=== PATIENT | female | born 1975 | race Caucasian/White ===

== ENCOUNTER 2019-10-05 06:56 | Day surgery (SDC) | payer MEDICAID ==
[2019-10-02 10:06] LABS: BASOPHILS # (AUTO) 0.1 X10'3 (0-0.2); BASOPHILS % (AUTO) 1.3 % (0-1); EOSINOPHILS # (AUTO) 0.4 X10'3 (0-0.9); EOSINOPHILS % (AUTO) 4.3 % (0-6); LYMPHOCYTES # (AUTO) 2.2 X10'3 (1.1-4.8); LYMPHOCYTES % (AUTO) 27.2 % (21-51); MEAN CORPUSCULAR HEMOGLOBIN 27.8 PG (27.0-31.0); MEAN CORPUSCULAR HGB CONC 33.4 g/dL (33.0-36.5); MEAN CORPUSCULAR VOLUME 83.3 FL (78-98); MEAN PLATELET VOLUME 8.4 FL (7.4-10.4); MONOCYTES # (AUTO) 0.4 X10'3 (0-0.9); MONOCYTES % (AUTO) 5.3 % (2-12); NEUTROPHILS # (AUTO) 5.1 X10'3 (1.8-7.7); NEUTROPHILS % (AUTO) 61.9 % (42-75); PRE OP HEMATOCRIT 44.2 % (35.0-45.0); PRE OP HEMOGLOBIN 14.8 g/dL (12.0-16.0); PRE OP PLATELET COUNT 331 X10'3 (140-440); RED BLOOD COUNT 5.31 X10'6 (4.20-5.60); RED CELL DISTRIBUTION WIDTH 14.5 % (11.5-14.5)
[2019-10-02 10:16] LABS: ALBUMIN 3.8 G/DL (3.4-5.0); ALBUMIN/GLOBULIN RATIO 0.9 (1.1-1.5); ALKALINE PHOSPHATASE 94 IU/L (46-116); BLOOD UREA NITROGEN 9 MG/DL (7-18); BUN/CREATININE RATIO 10.2 (6.6-38.0); CALCIUM 9.6 MG/DL (8.5-10.1); CHLORIDE 102 MMOL/L (99-107); CREATININE 0.88 MG/DL (0.40-0.90); PRE OP ALT 57 U/L (30-65); PRE OP ANION GAP 9 (8-16); PRE OP AST 43 U/L (10-37); PRE OP BILIRUB, TOTAL 0.4 MG/DL (0.0-1.0); PRE OP POTASSIUM 4.5 MMOL/L (3.4-5.1); PRE OP SODIUM 137 MMOL/L (135-145); TOTAL CARBON DIOXIDE 26.3 MMOL/L (24-32); TOTAL PROTEIN 7.9 G/DL (6.4-8.2); eGFR 70 ML/MIN
[2019-10-02 10:17] LABS: PRE OP GLUCOSE 289 MG/DL (70-104)
[2019-10-02 10:50] LABS: HCG SERUM QL NEGATIVE
[~2019-10-05] VITALS: Ht 182.9 cm; Wt 134.1 kg
[~2019-10-05 06:56] MED LIST: ALBU8.5H8 INH; ATOR40TA PO; BUPIVAcaine/PF 2.5mg/ml (0.25%) 10ml vial ONE; BUSP7.5T4 PO; CHOL10006 PO; DIPH25CA83 PO; GABA-532 PO; INSU100I31 SUBCUT; METF-437 PO; MULT-1085 PO; ceFAZolin 1GM/D5W- ADD-VANTAGE 50 ML IV ONE; cefazolin/dext.iso 2gm/50ml 50 ML IV ONE; famotidine 20mg tablet PO ONE; ringers solution, lacted 1,000 ML IV SCH
[2019-10-05] MEDS ORDERED: insulin regular, human U-100 3ml vial - multi-dose SQ ONE (08:40)
[2019-10-05] MEDS ORDERED: LIDOcaine 0.5% (5mg/ml) 50ml vial ONE (08:58)
[2019-10-05] MEDS ORDERED: fentaNYL/PF 50MCG/1 ML 2ML syringe ONE (10:09)
[2019-10-05] MEDS ORDERED: ringers solution, lacted 1,000 ML IV SCH (10:31)
[2019-10-05] MEDS ORDERED: morphine 2 MG/ML inj. syringe IV PRN (10:35)
[2019-10-05] MEDS ORDERED: meperidine/PF 25mg/ml syringe IV PRN ×3 (10:35)
[2019-10-05] MEDS ORDERED: morphine 4 MG/ML inj SYRINge IV PRN (10:35)
[2019-10-05] MEDS ORDERED: ondansetron/PF 4mg/2ml inj IV PRN (10:35)
[2019-10-05] MEDS ORDERED: proCHLORperazine 10 MG/2 ml inj IV PRN (10:35)
[2019-10-05] MEDS ORDERED: propofol inj 20 ML IV ONE (10:38)
[2019-10-05] MEDS ORDERED: midazolam 2 mg/2 ml injection ONE (10:38)
[2019-10-05 10:45] VITALS: BP 101/44
--- NOTE | 2019-10-05 10:45 | NUR ---
Received from OR via [facility] , accompanied by Anesthesiologist AYANNA and report given by Anesthesiolgist. PATIENT WITH 22G PIV IN LEFT UE RUNNING LR AT 100.DENIES PAIN TO RIGHT WRIST AT THIS TIME. DRESSING IS CDI. LEOS. + SENSATION. ICE DONNED IN RR. VSS. 10L MASK ON WITH 100% SATURATIONS AT THIS TIME. Addendum: 10/05/19 at 1053 by Don Varela RN, RN Amended: Links added.
[2019-10-05 10:55] VITALS: BP 150/91
[2019-10-05 11:05] VITALS: BP 138/83
[2019-10-05 11:15] VITALS: BP 128/81
[2019-10-05 11:19] VITALS: BP 125/79
[2019-10-05 11:20] VITALS: BP 125/79
== END 2019-10-05 11:25 | disposition home or self-care (01) ==
LOC: PAS 06:56
PROVIDERS: ATTEND Orthopaedic Surgery Hand Surgery
DX: G56.01 Carpal tunnel syndrome, right upper limb (principal); J45.909 Unspecified asthma, uncomplicated; E11.9 Type 2 diabetes mellitus without complications; G43.909 Migraine, unspecified, not intractable, without status migrainosus; F41.9 Anxiety disorder, unspecified; E66.9 Obesity, unspecified; Z68.41 Body mass index [BMI] 40.0-44.9, adult; Z72.89 Other problems related to lifestyle; Z88.2 Allergy status to sulfonamides; Z98.890 Other specified postprocedural states; M19.90 Unspecified osteoarthritis, unspecified site; Z87.440 Personal history of urinary (tract) infections; Z79.84 Long term (current) use of oral hypoglycemic drugs; Z79.899 Other long term (current) drug therapy
CPT/HCPCS: 29848; 36415; 80053; 82948; 84703; 85025; 93005; J0690; J2001; J2250; J2704; J3010; J3490; A4215; A7000; J1815; J7120

== ENCOUNTER 2020-01-04 07:15 | Day surgery (SDC) | payer MEDICAID ==
[2019-12-31 15:13] LABS: BASOPHILS % (AUTO) 0.1 % (0-1); EOSINOPHILS # (AUTO) 0.4 X10'3 (0-0.9); EOSINOPHILS % (AUTO) 3.8 % (0-6); LYMPHOCYTES # (AUTO) 2.9 X10'3 (1.1-4.8); LYMPHOCYTES % (AUTO) 26.7 % (21-51); MEAN CORPUSCULAR HEMOGLOBIN 27.9 PG (27.0-31.0); MEAN CORPUSCULAR VOLUME 84.5 FL (78-98); MONOCYTES # (AUTO) 0.6 X10'3 (0-0.9); MONOCYTES % (AUTO) 5.5 % (2-12); NEUTROPHILS # (AUTO) 6.9 X10'3 (1.8-7.7); NEUTROPHILS % (AUTO) 63.9 % (42-75); PRE OP HEMATOCRIT 43.5 % (35.0-45.0); PRE OP HEMOGLOBIN 14.4 g/dL (12.0-16.0); PRE OP PLATELET COUNT 300 X10'3 (140-440); RED BLOOD COUNT 5.14 X10'6 (4.20-5.60); RED CELL DISTRIBUTION WIDTH 14.5 % (11.5-14.5)
[2019-12-31 16:16] LABS: HCG SERUM QL NEGATIVE
[~2020-01-04] VITALS: Ht 180.3 cm; Wt 134.7 kg
[2020-01-04 07:15] VITALS: BP 168/80
[~2020-01-04 07:15] MED LIST changes: +DOXE25CA3 PO; -INSU100I31 SUBCUT; -ceFAZolin 1GM/D5W- ADD-VANTAGE 50 ML IV ONE; +ceFAZolin inj. 3,000 MG in normal saline 100ml IV soln 100 ML IV ONE; -cefazolin/dext.iso 2gm/50ml 50 ML IV ONE; +scopolamine 1.5mg patch.TD72 TD ONE
[2020-01-04] MEDS ORDERED: LIDOcaine 1% (10mg/ml) 2ml vial ONE (08:10)
[2020-01-04 09:06] LABS: ALBUMIN 3.9 G/DL (3.4-5.0); ALBUMIN/GLOBULIN RATIO 0.9 (1.1-1.5); ALKALINE PHOSPHATASE 101 IU/L (46-116); BLOOD UREA NITROGEN 9 MG/DL (7-18); BUN/CREATININE RATIO 9.6 (6.6-38.0); CALCIUM 8.7 MG/DL (8.5-10.1); CHLORIDE 103 MMOL/L (99-107); CREATININE 0.94 MG/DL (0.40-0.90); PRE OP ALT 59 U/L (30-65); PRE OP ANION GAP 7 (8-16); PRE OP AST 43 U/L (10-37); PRE OP BILIRUB, TOTAL 0.4 MG/DL (0.0-1.0); PRE OP POTASSIUM 4.7 MMOL/L (3.4-5.1); PRE OP SODIUM 138 MMOL/L (135-145); TOTAL PROTEIN 8.4 G/DL (6.4-8.2); eGFR 65 ML/MIN
[2020-01-04] MEDS ORDERED: fentaNYL/PF 50MCG/1 ML 2ML syringe ONE (09:08)
[2020-01-04] MEDS ORDERED: midazolam 2 mg/2 ml injection ONE ×2 (09:09→09:51)
[2020-01-04 09:14] LABS: PRE OP GLUCOSE 316 MG/DL (70-104)
[2020-01-04] MEDS ORDERED: LIDOcaine 0.5% (5mg/ml) 50ml vial ONE (09:29)
[2020-01-04] MEDS ORDERED: insulin regular, human U-100 3ml vial - multi-dose SQ ONE (09:35)
[2020-01-04] MEDS ORDERED: ondansetron/PF 4mg/2ml inj ONE (09:35)
[2020-01-04] MEDS ORDERED: labetalol 20mg/4ml (5mg/ml) syringe IV ONE (09:51)
[2020-01-04 10:02] VITALS: BP 119/75
--- NOTE | 2020-01-04 10:02 | NUR ---
Received from OR via , accompanied by Anesthesiologist DR FERNANDEZ and report given by Anesthesiolgist. AWAKE AND ALERT. VITALS STABLE. DRESSING DI. HANNAH PAIN. FINGERS WARM AND PINK.
[2020-01-04 10:12] VITALS: BP 125/78
[2020-01-04 10:22] VITALS: BP 141/71
[2020-01-04] MEDS ORDERED: insulin regular, human U-100 3ml vial - multi-dose IV ONE (10:25)
[2020-01-04 10:32] VITALS: BP 150/72
[2020-01-04 10:42] VITALS: BP 140/73
--- NOTE | 2020-01-04 10:52 | NUR ---
AWAKE AND ORIENTED. VITALS STABLE. DRESSING DI. HANNAH PAIN. HOME WITH HER DAD AT THIS TIME.
== END 2020-01-04 10:52 | disposition home or self-care (01) ==
LOC: PAS 07:15
PROVIDERS: ATTEND Orthopaedic Surgery Hand Surgery
DX: G56.02 Carpal tunnel syndrome, left upper limb (principal); E11.9 Type 2 diabetes mellitus without complications; J45.909 Unspecified asthma, uncomplicated; E78.5 Hyperlipidemia, unspecified; G43.909 Migraine, unspecified, not intractable, without status migrainosus; Z88.2 Allergy status to sulfonamides; Z91.018 Allergy to other foods; Z98.890 Other specified postprocedural states; Z72.89 Other problems related to lifestyle; Z79.899 Other long term (current) drug therapy; Z79.84 Long term (current) use of oral hypoglycemic drugs; Z87.440 Personal history of urinary (tract) infections; Z11.59 Encounter for screening for other viral diseases
CPT/HCPCS: 29848; 36415; 80053; 82948; 84703; 85025; J0690; J2001; J2250; J2405; J3010; J3490; U0003; A4215; A7000; J1815; J7120

== ENCOUNTER 2020-01-13 17:50 | Emergency (ER) | payer MEDICAID ==
[~2020-01-13] VITALS: Ht 182.9 cm; Wt 132.0 kg
[~2020-01-13 17:50] MED LIST changes: -BUPIVAcaine/PF 2.5mg/ml (0.25%) 10ml vial ONE; -ceFAZolin inj. 3,000 MG in normal saline 100ml IV soln 100 ML IV ONE; -famotidine 20mg tablet PO ONE; -ringers solution, lacted 1,000 ML IV SCH; -scopolamine 1.5mg patch.TD72 TD ONE
[2020-01-13 18:09] VITALS: BP 156/107
[2020-01-13] MEDS ORDERED: CEPH500C5 PO (18:46)
== END 2020-01-13 19:03 | disposition home or self-care (01) ==
LOC: ER 17:51
DX: Z48.02 Encounter for removal of sutures (principal); M79.602 Pain in left arm; Z88.2 Allergy status to sulfonamides; Z91.018 Allergy to other foods; Z79.2 Long term (current) use of antibiotics; Z79.899 Other long term (current) drug therapy
CPT/HCPCS: 99284